=== PATIENT | female | born 1970 | race Caucasian/White ===

== ENCOUNTER 2017-01-20 09:56 | Emergency (ER) | payer BC ==
[~2017-01-20] VITALS: Ht 162.6 cm; Wt 83.6 kg
[2017-01-20 11:23] VITALS: BP 158/89
== END 2017-01-20 11:23 | disposition home or self-care (01) ==
LOC: ED 09:56
DX: N39.0 Urinary tract infection, site not specified (principal); E11.9 Type 2 diabetes mellitus without complications; I10 Essential (primary) hypertension; Z88.1 Allergy status to other antibiotic agents; Z90.710 Acquired absence of both cervix and uterus
CPT/HCPCS: J1815

== ENCOUNTER 2017-05-23 09:23 | Emergency (ER) | payer BC ==
[~2017-05-23] VITALS: Ht 162.6 cm; Wt 85.3 kg
[2017-05-23 09:34] VITALS: Ht 162.6 cm; Wt 85.3 kg
[2017-05-23 10:36] LABS: BASOPHIL % 0.3 % (0-2); PLATELET COUNT 214 x10^3mcL (130-400); RED CELL DISTRIBUTION WIDTH 12.8 % (11.5-14.5)
[2017-05-23 10:40] LABS: CARBON DIOXIDE 27.2 mmol/L (21-32); CHLORIDE SERUM 101 mmol/L (98-107); CREATININE SERUM 0.6 mg/dL (0.6-1.0); GFR1 > 60 mL/min; GLUCOSE SERUM 377 mg/dL (74-106); POTASSIUM SERUM 3.7 mmol/L (3.5-5.1); SODIUM SERUM 139 mmol/L (136-145)
[2017-05-23 12:34] VITALS: BP 136/88
== END 2017-05-23 12:34 | disposition home or self-care (01) ==
LOC: ED 09:23
PROVIDERS: Specialist
DX: N39.0 Urinary tract infection, site not specified (principal); E11.65 Type 2 diabetes mellitus with hyperglycemia; B37.3 Candidiasis of vulva and vagina; Z88.1 Allergy status to other antibiotic agents
CPT/HCPCS: J1815; J1885; J7030